=== PATIENT | male | born 1935 | race Caucasian/White ===

== ENCOUNTER 2023-09-08 08:36 | Outpatient (CLI) | payer MEDICARE, BC | END 2023-09-08 08:37 | disposition home or self-care (01) | LOC: MRI 08:36 | PROVIDERS: ATTEND Psychiatry & Neurology Neurology | DX: R25.1 Tremor, unspecified (principal); I67.89 Other cerebrovascular disease | CPT/HCPCS: 70553 ==

== ENCOUNTER 2023-10-03 09:23 | Emergency (ER) | payer MEDICARE, BC ==
[2023-10-03 10:07] LABS: #Basophils 0.05 10x3/uL (0.0-0.2); %Basophils 0.4 % (0.0-1.0); %Eosinophils 0.2 % (0.0-10.0); %Lymphocytes 9.7 % (21.0-51.0); %Monocytes 9.3 % (0.0-10.0); Hematocrit 32.2 % (42.0-52.0); Hemoglobin 11.2 g/dL (14.0-18.0); Mean Corpuscular HGB CONC 34.8 g/dL (32.0-36.0); Mean Corpuscular Hemoglobin 31.1 pg (27.0-31.0); Mean Corpuscular Volume 89.4 fL (78.0-98.0); Mean Platelet Volume 10.1 fL (7.4-10.4); Platelet Count 275 10x3/uL (130-400); RBC Distribution Width 12.9 % (11.5-14.5)
[2023-10-03 10:32] LABS: ALT (SGPT) 7 U/L (8-55); AST (SGOT) 13 U/L (5-34); Albumin 3.2 g/dL (3.4-4.8); Alkaline Phosphatase 76 U/L (40-110); Anion Gap 12 mmol/L (10-20); BUN (Urea Nitrogen) 5 mg/dL (8.4-25.7); Bilirubin, Total 0.7 mg/dL (0.2-1.2); Calc. Creatinine Clearance 0 mL/min (70-130); Calcium 8.6 mg/dL (7.8-10.44); Carbon Dioxide 20 mmol/L (23-31); Chloride 100 mmol/L (98-107); Estimated GFR 87; Globulin 3.1 g/dL (2.4-3.5); Glucose 121 mg/dL (83-110); Protein, Total 6.3 g/dL (5.8-8.1)
[2023-10-03 10:36] LABS: Troponin I Less than 0.010 ng/mL (< 0.028)
[2023-10-03 10:38] LABS: Sodium 128 mmol/L (136-145)
[2023-10-03 12:29] LABS: Bacteria/HPF 2+ HPF (None Seen); Bilirubin Negative (Negative); Blood, Urine Negative (Negative); CAUTI Indications for Culture Pelvic or flank pain; Clarity Turbid (Clear); Glucose, Urine (Dipstick) Normal (Negative); Ketone, Urine Negative (Negative); Leukocyte 250 Leu/uL (Negative); Nitrite 1+ (Negative); Protein, Urine (Dipstick) Negative (Neg-Trace); RBC/HPF 0-3 HPF (0-3); Specific Gravity, Urine 1.012 (1.002-1.036); Squamous Epithelial None Seen HPF (0-3); Urobilinogen Normal mg/dL (Less than 2); WBC/HPF 21-50 HPF (0-3)
[2023-10-03 12:30] LABS: Urine Culture Reflex Yes Yes
[2023-10-03] MEDS ORDERED: Sodium Chloride 0.9% 100 ML ONE (12:46)
[2023-10-03] MEDS ORDERED: cefTRIAXone (ROCEPHIN) 1 GM VIAL ONE (12:46)
== END 2023-10-03 13:22 | disposition home or self-care (01) ==
LOC: ERS 09:23
DX: N39.0 Urinary tract infection, site not specified (principal); R11.2 Nausea with vomiting, unspecified; Z75.3 Unavailability and inaccessibility of health-care facilities; E87.1 Hypo-osmolality and hyponatremia; D64.9 Anemia, unspecified; Z87.891 Personal history of nicotine dependence
CPT/HCPCS: 51701; 80053; 81001; 84484; 85025; 87077; 87086; 93005; 96361; 96365; 99284; J0696; J3490; 87186

== ENCOUNTER 2023-10-11 15:30 | Inpatient (IN) | payer MEDICARE, BC, OTHER ==
[2023-10-11 16:51] LABS: #Basophils 0.04 10x3/uL (0.0-0.2); %Basophils 0.8 % (0.0-1.0); %Eosinophils 3.1 % (0.0-10.0); %Lymphocytes 26.7 % (21.0-51.0); %Monocytes 15.8 % (0.0-10.0); %Neutrophils 53.2 % (42.0-75.0); Hematocrit 29.8 % (42.0-52.0); Hemoglobin 9.8 g/dL (14.0-18.0); Mean Corpuscular HGB CONC 32.9 g/dL (32.0-36.0); Mean Corpuscular Hemoglobin 30.2 pg (27.0-31.0); Mean Corpuscular Volume 91.7 fL (78.0-98.0); Mean Platelet Volume 10.5 fL (7.4-10.4); Platelet Count 325 10x3/uL (130-400); RBC Distribution Width 13.1 % (11.5-14.5); Red Blood Cell (RBC) Count 3.25 mill/uL (4.70-6.10)
[2023-10-11 17:10] LABS: INR-International Normal Ratio 1.2; PTT 32.5 sec (22.9-36.1); Prothrombin Time 15.3 sec (12.0-14.7)
[2023-10-11 17:16] LABS: Troponin I Less than 0.010 ng/mL (< 0.028)
[2023-10-11 17:19] LABS: ALT (SGPT) 7 U/L (8-55); AST (SGOT) 14 U/L (5-34); Albumin 2.9 g/dL (3.4-4.8); Alkaline Phosphatase 66 U/L (40-110); Anion Gap 15 mmol/L (10-20); BUN (Urea Nitrogen) Less than 4 mg/dL (8.4-25.7); Bilirubin, Total 0.3 mg/dL (0.2-1.2); Calc. Creatinine Clearance 0 mL/min (70-130); Calcium 8.3 mg/dL (7.8-10.44); Carbon Dioxide 21 mmol/L (23-31); Chloride 101 mmol/L (98-107); Estimated GFR 86; Glucose 102 mg/dL (83-110); Magnesium 2.1 mg/dL (1.6-2.6); Potassium 3.6 mmol/L (3.5-5.1); Protein, Total 5.9 g/dL (5.8-8.1); Sodium 133 mmol/L (136-145)
[2023-10-11] MEDS ORDERED: Nitroglycerin 0.4 MG TAB (25 Tab Bottle) SL PRN (18:54)
[2023-10-11] MEDS ORDERED: Acetaminophen 325 MG TAB PO PRN (18:57)
[2023-10-11] MEDS ORDERED: Ondansetron PF 4 MG/2 ML Vial IVP PRN (18:57)
[2023-10-11 20:17] LABS: Troponin I 0.014 ng/mL (< 0.028)
[2023-10-11] MEDS ORDERED: Tamsulosin HCl 0.4 MG CAP ONE (21:16)
[2023-10-11] MEDS ORDERED: Atorvastatin Calcium 20 MG TAB ONE (21:16)
[2023-10-11] MEDS ORDERED: Apixaban 5 MG TAB ONE (21:16)
[2023-10-11] MEDS: Apixaban 2.5 MG TAB PO SCH (21:20)
[2023-10-11] MEDS: Tamsulosin HCl 0.4 MG CAP PO SCH (21:20)
[2023-10-11] MEDS: Atorvastatin Calcium 20 MG TAB PO SCH (21:20)
[2023-10-11 22:30] LABS: Troponin I 0.017 ng/mL (< 0.028)
[2023-10-11 22:54] VITALS: BMI 22.4
[2023-10-12] MEDS: Melatonin 3 MG TAB PO SCH (00:31)
[2023-10-12 04:27] LABS: #Basophils 0.05 10x3/uL (0.0-0.2); %Basophils 0.9 % (0.0-1.0); %Eosinophils 4.7 % (0.0-10.0); %Monocytes 13.8 % (0.0-10.0); %Neutrophils 50.2 % (42.0-75.0); Mean Corpuscular HGB CONC 33.3 g/dL (32.0-36.0); Mean Corpuscular Hemoglobin 30.5 pg (27.0-31.0); Mean Corpuscular Volume 91.5 fL (78.0-98.0); Mean Platelet Volume 10.1 fL (7.4-10.4); Platelet Count 302 10x3/uL (130-400); Red Blood Cell (RBC) Count 3.28 mill/uL (4.70-6.10)
[2023-10-12 06:40] LABS: Anion Gap 8 mmol/L (10-20); BUN (Urea Nitrogen) Less than 4 mg/dL (8.4-25.7); Calc. Creatinine Clearance 81 mL/min (70-130); Calcium 8.1 mg/dL (7.8-10.44); Carbon Dioxide 23 mmol/L (23-31); Chloride 104 mmol/L (98-107); Estimated GFR 90; Glucose 93 mg/dL (83-110); Potassium 3.4 mmol/L (3.5-5.1); Sodium 132 mmol/L (136-145)
[2023-10-12] MEDS: Pantoprazole DR 40 MG TAB PO SCH (10:05)
[2023-10-12] MEDS: Sertraline 25 MG TAB PO SCH (10:05)
[2023-10-12 15:59] VITALS: BP 137/64; TEMP 97.9
== END 2023-10-12 17:06 | disposition home or self-care (01) | DRG 309 ==
LOC: ERS 15:30 → ERHOLD 19:00 → 2NO 22:46 → OBSVTOIN 10-12 13:02
PROVIDERS: ADMIT Internal Medicine; ATTEND Family Medicine
DX: R00.1 Bradycardia, unspecified (principal); E87.1 Hypo-osmolality and hyponatremia; F02.84 Dementia in other diseases classified elsewhere, unspecified severity, with anxiety; E87.6 Hypokalemia; I48.91 Unspecified atrial fibrillation; N40.0 Benign prostatic hyperplasia without lower urinary tract symptoms; J45.909 Unspecified asthma, uncomplicated; I10 Essential (primary) hypertension; T44.7X5A Adverse effect of beta-adrenoreceptor antagonists, initial encounter; D64.9 Anemia, unspecified; G30.9 Alzheimer's disease, unspecified; F02.80 Dementia in other diseases classified elsewhere, unspecified severity, without behavioral disturbance, psychotic disturbance, mood disturbance, and anxiety; Z79.01 Long term (current) use of anticoagulants; Z79.899 Other long term (current) drug therapy; Z79.51 Long term (current) use of inhaled steroids; Z87.891 Personal history of nicotine dependence; R11.2 Nausea with vomiting, unspecified; E78.5 Hyperlipidemia, unspecified
CPT/HCPCS: 36415; 71045; 80048; 80053; 81001; 83735; 83880; 84484; 85025; 85610; 85730; 87077; 87086; 87186; 93005; 96361; 96374; G0378; J2405

== ENCOUNTER 2023-10-14 09:16 | Outpatient (CLI) | payer MEDICARE, BC | END 2023-10-14 09:17 | disposition home or self-care (01) | LOC: BICCT 09:16 | PROVIDERS: ATTEND Internal Medicine Critical Care Medicine | DX: J18.9 Pneumonia, unspecified organism (principal) | CPT/HCPCS: 71250 ==

== ENCOUNTER 2024-02-11 20:40 | Emergency (ER) | payer MEDICARE, BC, OTHER ==
[2024-02-11] MEDS ORDERED: Dexamethasone 10 MG/ML VIAL ONE (21:11)
[2024-02-11] MEDS ORDERED: Lidocaine 1% PF 5 ML VIAL ONE (21:11)
[2024-02-11] MEDS ORDERED: cefTRIAXone (ROCEPHIN) 500 MG VIAL ONE (21:11)
[2024-02-11] MEDS ORDERED: Ondansetron ODT 4 MG TAB ONE (21:35)
[2024-02-11 22:36] LABS: #Basophils 0.05 10x3/uL (0.0-0.2); %Basophils 0.5 % (0.0-1.0); %Eosinophils 1.6 % (0.0-10.0); %Lymphocytes 14.5 % (21.0-51.0); %Monocytes 14.3 % (0.0-10.0); %Neutrophils 68.6 % (42.0-75.0); Hematocrit 30.8 % (42.0-52.0); Hemoglobin 10.1 g/dL (14.0-18.0); Mean Corpuscular HGB CONC 32.8 g/dL (32.0-36.0); Mean Corpuscular Hemoglobin 30.3 pg (27.0-31.0); Mean Corpuscular Volume 92.5 fL (78.0-98.0); Mean Platelet Volume 10.9 fL (7.4-10.4); Platelet Count 242 10x3/uL (130-400); RBC Distribution Width 14.3 % (11.5-14.5); Red Blood Cell (RBC) Count 3.33 mill/uL (4.70-6.10)
[2024-02-11 22:58] LABS: ALT (SGPT) 6 U/L (8-55); AST (SGOT) 16 U/L (5-34); Alkaline Phosphatase 73 U/L (40-110); Anion Gap 15 mmol/L (10-20); BUN (Urea Nitrogen) 6 mg/dL (8.4-25.7); Bilirubin, Total 0.5 mg/dL (0.2-1.2); Calc. Creatinine Clearance 0 mL/min (70-130); Calcium 8.2 mg/dL (7.8-10.44); Carbon Dioxide 18 mmol/L (23-31); Chloride 102 mmol/L (98-107); Estimated GFR 89; Globulin 3.2 g/dL (2.4-3.5); Glucose 100 mg/dL (83-110); Potassium 3.9 mmol/L (3.5-5.1); Protein, Total 6.2 g/dL (5.8-8.1); Sodium 131 mmol/L (136-145)
== END 2024-02-11 23:18 | disposition home or self-care (01) ==
LOC: ERS 20:40
DX: R05.1 Acute cough (principal); I10 Essential (primary) hypertension; Z87.891 Personal history of nicotine dependence
CPT/HCPCS: 71045; 80053; 85025; 87428; J0696; J1100; 36415; 96372; Q0162

== ENCOUNTER 2024-02-14 13:58 | Emergency (ER) | payer MEDICARE, BC, OTHER ==
[~2024-02-14 13:58] MED LIST: Iopamidol-370 76% 500 ML MDV (1 ML CHARGE) ONE
[2024-02-14 15:16] LABS: #Basophils Less than 0.03 10x3/uL (0.0-0.2); #Eosinophils Less than 0.03 10x3/uL (0.0-0.7); %Basophils 0.1 % (0.0-1.0); %Eosinophils 0.1 % (0.0-10.0); %Monocytes 12.4 % (0.0-10.0); %Neutrophils 60.9 % (42.0-75.0); Hematocrit 34.1 % (42.0-52.0); Hemoglobin 11.1 g/dL (14.0-18.0); Mean Corpuscular HGB CONC 32.6 g/dL (32.0-36.0); Mean Corpuscular Hemoglobin 29.8 pg (27.0-31.0); Mean Corpuscular Volume 91.7 fL (78.0-98.0); Mean Platelet Volume 10.7 fL (7.4-10.4); Platelet Count 354 10x3/uL (130-400); RBC Distribution Width 14.6 % (11.5-14.5); Red Blood Cell (RBC) Count 3.72 mill/uL (4.70-6.10)
[2024-02-14 15:37] LABS: ALT (SGPT) 10 U/L (8-55); AST (SGOT) 20 U/L (5-34); Albumin 3.4 g/dL (3.4-4.8); Alkaline Phosphatase 71 U/L (40-110); Anion Gap 12 mmol/L (10-20); BUN (Urea Nitrogen) 15 mg/dL (8.4-25.7); Bilirubin, Total 0.3 mg/dL (0.2-1.2); Calc. Creatinine Clearance 0 mL/min (70-130); Calcium 8.8 mg/dL (7.8-10.44); Carbon Dioxide 24 mmol/L (23-31); Chloride 105 mmol/L (98-107); Estimated GFR 85; Globulin 3.5 g/dL (2.4-3.5); Glucose 89 mg/dL (83-110); Potassium 3.4 mmol/L (3.5-5.1); Protein, Total 6.9 g/dL (5.8-8.1); Sodium 138 mmol/L (136-145)
[2024-02-14] MEDS ORDERED: Ondansetron PF 4 MG/2 ML Vial ONE (17:16)
[2024-02-14] MEDS ORDERED: Metoclopramide HCl 10 MG (2 mL) VIAL ONE (18:16)
[2024-02-14 19:05] LABS: Bilirubin Negative (Negative); Blood, Urine Negative (Negative); CAUTI Indications for Culture Dysuria,urgency,freq; Calcium Oxalate Crystals 4+ HPF (None Seen); Clarity Turbid (Clear); Glucose, Urine (Dipstick) Normal (Negative); Ketone, Urine Negative (Negative); Leukocyte 250 Leu/uL (Negative); Nitrite Negative (Negative); Protein, Urine (Dipstick) 20 mg/dL (Neg-Trace); RBC/HPF 0-3 HPF (0-3); Specific Gravity, Urine 1.026 (1.002-1.036); Squamous Epithelial 0-3 HPF (0-3); Urobilinogen Normal mg/dL (Less than 2); WBC/HPF 0-3 HPF (0-3)
[2024-02-14 19:13] LABS: Bacteria/HPF Rare-Few HPF (None Seen); Urine Culture Reflex No No
== END 2024-02-14 19:54 | disposition home or self-care (01) ==
LOC: ERS 13:58
DX: R11.2 Nausea with vomiting, unspecified (principal); R19.7 Diarrhea, unspecified; I10 Essential (primary) hypertension; Z87.891 Personal history of nicotine dependence
CPT/HCPCS: 71045; 74177; 80053; 81001; 85025; 93005; J2405; J2765; 36415; 96361; 96365; 96375

== ENCOUNTER 2024-03-17 19:10 | Emergency (ER) | payer MEDICARE, BC, OTHER ==
[2024-03-17 19:51] LABS: #Basophils 0.05 10x3/uL (0.0-0.2); %Basophils 0.8 % (0.0-1.0); %Eosinophils 1.7 % (0.0-10.0); %Lymphocytes 28.1 % (21.0-51.0); %Monocytes 13.5 % (0.0-10.0); %Neutrophils 55.6 % (42.0-75.0); Hematocrit 34.4 % (42.0-52.0); Hemoglobin 11.4 g/dL (14.0-18.0); Mean Corpuscular HGB CONC 33.1 g/dL (32.0-36.0); Mean Corpuscular Hemoglobin 30.4 pg (27.0-31.0); Mean Corpuscular Volume 91.7 fL (78.0-98.0); Mean Platelet Volume 10.6 fL (7.4-10.4); Platelet Count 280 10x3/uL (130-400); RBC Distribution Width 13.5 % (11.5-14.5); Red Blood Cell (RBC) Count 3.75 mill/uL (4.70-6.10)
[2024-03-17 20:04] LABS: INR-International Normal Ratio 1.2; Prothrombin Time 14.9 sec (12.0-14.7)
[2024-03-17 20:14] LABS: ALT (SGPT) 7 U/L (8-55); AST (SGOT) 16 U/L (5-34); Acetaminophen Less than 10 mcg/mL (Less than 10); Albumin 3.1 g/dL (3.4-4.8); Alcohol Less than 10.0 mg/dL (Less than 10); Alkaline Phosphatase 83 U/L (40-110); Anion Gap 10 mmol/L (10-20); BUN (Urea Nitrogen) 5 mg/dL (8.4-25.7); Bilirubin, Total 0.3 mg/dL (0.2-1.2); Calc. Creatinine Clearance 0 mL/min (70-130); Calcium 8.8 mg/dL (7.8-10.44); Carbon Dioxide 27 mmol/L (23-31); Chloride 105 mmol/L (98-107); Estimated GFR 88; Globulin 3.2 g/dL (2.4-3.5); Glucose 115 mg/dL (83-110); Magnesium 2.1 mg/dL (1.6-2.6); Potassium 3.8 mmol/L (3.5-5.1); Protein, Total 6.3 g/dL (5.8-8.1); Salicylate Less than 8.0 mg/dL (Less than 8.0); Sodium 138 mmol/L (136-145)
== END 2024-03-17 21:27 | disposition home or self-care (01) ==
LOC: ERS 19:10
DX: G25.0 Essential tremor (principal); I10 Essential (primary) hypertension; Z87.891 Personal history of nicotine dependence; I48.91 Unspecified atrial fibrillation
CPT/HCPCS: 36415; 70450; 71045; 72125; 80053; 80307; 83735; 84443; 85025; 85610; 85730; 93005

== ENCOUNTER 2024-04-06 21:46 | Emergency (ER) | payer MEDICARE, BC, OTHER ==
[2024-04-06 22:28] LABS: #Basophils 0.04 10x3/uL (0.0-0.2); %Basophils 0.7 % (0.0-1.0); %Lymphocytes 32.9 % (21.0-51.0); %Monocytes 12.9 % (0.0-10.0); Hematocrit 31.7 % (42.0-52.0); Hemoglobin 10.4 g/dL (14.0-18.0); Mean Corpuscular HGB CONC 32.8 g/dL (32.0-36.0); Mean Corpuscular Hemoglobin 30.2 pg (27.0-31.0); Mean Corpuscular Volume 92.2 fL (78.0-98.0); Mean Platelet Volume 11.4 fL (7.4-10.4); Platelet Count 263 10x3/uL (130-400); RBC Distribution Width 13.9 % (11.5-14.5); Red Blood Cell (RBC) Count 3.44 mill/uL (4.70-6.10)
[2024-04-06 22:41] LABS: Bacteria/HPF None Seen HPF (None Seen); Bilirubin Negative (Negative); Blood, Urine Negative (Negative); CAUTI Indications for Culture Dysuria,urgency,freq; Clarity Clear (Clear); Glucose, Urine (Dipstick) Normal (Negative); Ketone, Urine Negative (Negative); Leukocyte 25 Leu/uL (Negative); Nitrite Negative (Negative); Protein, Urine (Dipstick) Negative (Neg-Trace); RBC/HPF 0-3 HPF (0-3); Specific Gravity, Urine 1.006 (1.002-1.036); Squamous Epithelial None Seen HPF (0-3); Urobilinogen Normal mg/dL (Less than 2); WBC/HPF 0-3 HPF (0-3); pH, Urine 6.5 (5.0-9.0)
[2024-04-06 22:43] LABS: INR-International Normal Ratio 1.1; PTT 31.5 sec (22.9-36.1); Prothrombin Time 13.9 sec (12.0-14.7)
[2024-04-06 22:43] LABS: Urine Culture Reflex No No
[2024-04-06 22:45] LABS: ALT (SGPT) 9 U/L (8-55); AST (SGOT) 19 U/L (5-34); Albumin 3.2 g/dL (3.4-4.8); Alkaline Phosphatase 86 U/L (40-110); Anion Gap 12 mmol/L (10-20); BUN (Urea Nitrogen) 6 mg/dL (8.4-25.7); Bilirubin, Total 0.3 mg/dL (0.2-1.2); Calc. Creatinine Clearance 0 mL/min (70-130); Calcium 8.6 mg/dL (7.8-10.44); Carbon Dioxide 23 mmol/L (23-31); Chloride 102 mmol/L (98-107); Estimated GFR 92; Globulin 3.2 g/dL (2.4-3.5); Glucose 115 mg/dL (83-110); Potassium 3.5 mmol/L (3.5-5.1); Protein, Total 6.4 g/dL (5.8-8.1); Sodium 133 mmol/L (136-145)
[2024-04-06 22:49] LABS: Troponin I 0.016 ng/mL (< 0.028)
== END 2024-04-06 23:09 | disposition home or self-care (01) ==
LOC: ERS 21:46
DX: R31.9 Hematuria, unspecified (principal); I48.91 Unspecified atrial fibrillation; Z87.891 Personal history of nicotine dependence; I10 Essential (primary) hypertension; Z79.01 Long term (current) use of anticoagulants; K51.80 Other ulcerative colitis without complications
CPT/HCPCS: 74177; 80053 ×2; 81001; 84484; 85025 ×2; 85610; 85730; 93005; 99284; Q9967; 36415